=== PATIENT | female | born 1955 | race Caucasian/White ===

== ENCOUNTER → 2016-10-21 | Outpatient (CLI) | payer BC ==
[~2016-10-21] MED LIST: ALPR1TAB6 PO; AMOX500T PO; DILT180C53 PO; HYDR-3144 PO; HYDR60TA PO
[2016-10-21 13:29] LABS: PATH.CAST-FLAG NOT PRESENT; SPERM-FLAG NOT PRESENT; SRC-FLAG NOT PRESENT; XTAL-FLAG NOT PRESENT; YLC-FLAG NOT PRESENT
[2016-10-21 13:53] LABS: ASPARTATE AMINO TRANSFERASE 19 U/L (15-37); BLOOD UREA NITROGEN 8 mg/dL (7-18)
[2016-10-21 14:21] LABS: HIV 1&2 ANTIBODY SCREEN Nonreactive (Nonreactive); HIV-1 p24 ANTIGEN Nonreactive (Nonreactive)
[2016-10-22 09:32] LABS: HEPATITIS C VIRUS ANTIBODY Nonreactive (Nonreactive)
== END | disposition home or self-care (01) ==
LOC: STAR 12:04
PROVIDERS: ATTEND Orthopaedic Surgery Orthopaedic Surgery of the Spine
DX: Z01.818 Encounter for other preprocedural examination (principal); R91.8 Other nonspecific abnormal finding of lung field; M50.00 Cervical disc disorder with myelopathy, unspecified cervical region
CPT/HCPCS: 36415; 71020; 80053; 80074; 81001; 85025; 85610; 85651; 85730; 86703; 87077; 87086; 87186; 87899; 93005; G0435

== ENCOUNTER 2016-11-01 08:25 | Inpatient (IN) | payer BC ==
[2016-10-21 13:02] VITALS: BP 157/88
[~2016-11-01] VITALS: Ht 167.6 cm; Wt 67.8 kg
[~2016-11-01 08:25] MED LIST changes: +BACITRACIN 50,000 UNIT ONE; +BUPIVACAINE/PF-EPI 0.25% 1:200K ONE; +BUPIVACAINE/PF-EPI 0.5% 1:200K ONE; +LIDOCAINE/PF 1%-EPI 1:200K, 30ML ONE; +THROMBIN 5,000 UNIT VIAL TP ONE
[2016-11-01] MEDS ORDERED: LACTATED RINGERS 1,000 ML IV SCH (08:52)
[2016-11-01] MEDS ORDERED: HYDROmorphone 2 MG/ML, 1ML ONE (09:36)
[2016-11-01] MEDS ORDERED: FENTANYL PF 250 MCG/5ML ONE (09:36)
[2016-11-01] MEDS ORDERED: KETAMINE 10 MG/ML, 20ML ONE (09:36)
[2016-11-01] MEDS ORDERED: MIDAZOLAM 1 MG/ML, 2ML ONE (09:37)
[2016-11-01] MEDS ORDERED: SUCCINYLCHOLINE 20 MG/ML, 10ML ONE (11:30)
[2016-11-01] MEDS ORDERED: PROPOFOL 10 MG/ML, 20ML ONE (11:30)
[2016-11-01] MEDS ORDERED: CEFAZOLIN 1,000 MG ONE (11:30)
[2016-11-01] MEDS ORDERED: ONDANSETRON 2MG/ML, 2ML ONE (11:30)
[2016-11-01] MEDS ORDERED: PHENYLEPHRINE 10 MG/ML ONE (11:30)
[2016-11-01] MEDS ORDERED: PROPOFOL 10 MG/ML, 50ML ONE (11:30)
[2016-11-01] MEDS ORDERED: DEXAMETHASONE 4 MG/ML, 5ML ONE (11:30)
[2016-11-01] MEDS ORDERED: HYDROmorphone 1 MG/ML, 1ML IV PRN (12:00)
[2016-11-01] MEDS ORDERED: hydrALAzine 20 MG/ML, 1ML IV PRN ×2 (12:00→14:30)
[2016-11-01] MEDS ORDERED: OXYcodone 5 MG/5 ML ORAL.SOL UDC PO PRN (12:00)
[2016-11-01] MEDS ORDERED: FENTANYL PF 100 MCG/2ML IV PRN ×2 (12:00→14:30)
[2016-11-01] MEDS ORDERED: MEPERIDINE/PF 25MG/0.5ML IVPush PRN ×2 (12:00→14:30)
[2016-11-01] MEDS ORDERED: ONDANSETRON 2MG/ML, 2ML IVPush PRN ×2 (12:00→14:30)
[2016-11-01] MEDS ORDERED: HYDROcodone/APAP 7.5-325MG/15ML UDC PO PRN ×2 (12:00→14:30)
[2016-11-01] MEDS ORDERED: LABETALOL 5MG/ML, 20ML IV PRN ×3 (12:00→16:00)
[2016-11-01] MEDS ORDERED: PROMETHAZINE 25 MG/ML, 1ML IV PRN ×2 (12:00→14:30)
[2016-11-01] MEDS ORDERED: MIDAZOLAM 1 MG/ML, 2ML IV PRN ×2 (12:00→14:30)
[2016-11-01] MEDS ORDERED: ALBUTEROL/IPRATROPIUM 2.5MG/0.5MG, 3 ML NPPB PRN ×2 (12:00→14:30)
[2016-11-01] MEDS ORDERED: HYDROmorphone 1 MG/ML, 1ML ONE (14:14)
[2016-11-01] MEDS ORDERED: HYDROcodone/APAP 7.5-325MG/15ML UDC ONE (14:15)
[2016-11-01] MEDS: HYDROmorphone 1 MG/ML, 1ML IV PRN ×2 (14:30→14:43)
[2016-11-01] MEDS ORDERED: DIAZEPAM 5 MG/ML, 2ML ONE (14:38)
[2016-11-01] MEDS: DIAZEPAM 5 MG/ML, 2ML IV PRN ×4 (14:44→15:05)
[2016-11-01 15:45] VITALS: BP 126/77
[2016-11-01] MEDS ORDERED: DIPHENHYDRAMINE 50 MG/ML, 1ML IVPush PRN (16:00)
[2016-11-01] MEDS ORDERED: PROMETHAZINE 25 MG/ML, 1ML IM PRN (16:00)
[2016-11-01] MEDS: AMOXICILLIN 500 MG CAPSULE PO SCH ×2 (16:00→21:40)
[2016-11-01] MEDS ORDERED: DIPHENHYDRAMINE 50 MG/ML, 1ML IM PRN (16:00)
[2016-11-01] MEDS ORDERED: DIPHENHYDRAMINE 50 MG CAPSULE PO PRN (16:00)
[2016-11-01] MEDS ORDERED: BISACODYL 10 MG SUPP PR PRN (16:00)
[2016-11-01] MEDS ORDERED: PROMETHAZINE 12.5 MG SUPP PR PRN (16:00)
[2016-11-01] MEDS ORDERED: NICOTINE 14MG/24 HR PATCH.TD24 TD SCH (16:00)
[2016-11-01] MEDS ORDERED: MAGNESIUM HYDROXIDE 8%, 30ML UDC PO PRN (16:00)
[2016-11-01] MEDS: HYDROcodone/APAP 10/325 MG TABLET PO SCH ×2 (16:00→19:48)
[2016-11-01] MEDS: CEFAZOLIN PMX 1GM/50ML 50 ML IVPB SCH (19:44)
[2016-11-01 20:00] VITALS: BP 133/77
[2016-11-01] MEDS: LACTATED RINGERS 1,000 ML IV SCH (21:40)
[2016-11-02 00:15] VITALS: BP 136/83
[2016-11-02] MEDS ORDERED: HYDROmorphone 1 MG/ML, 1ML ONE (02:52)
[2016-11-02] MEDS: HYDROcodone/APAP 10/325 MG TABLET PO SCH ×4 (02:56→11:52)
[2016-11-02] MEDS: HYDROmorphone 2 MG/ML, 1ML IM PRN ×2 (02:58→05:54)
[2016-11-02 03:27] VITALS: BP 154/84
[2016-11-02] MEDS: CEFAZOLIN PMX 1GM/50ML 50 ML IVPB SCH (04:07)
[2016-11-02] MEDS: LACTATED RINGERS 1,000 ML IV SCH (07:46)
[2016-11-02] MEDS: AMOXICILLIN 500 MG CAPSULE PO SCH (08:00)
[2016-11-02 08:09] VITALS: BP 135/78
[2016-11-02] MEDS ORDERED: SENNA/DOCUSATE TABLET PO SCH (09:00)
[2016-11-02] MEDS ORDERED: DILTIAZEM CD 180 MG CAP.ER.24H PO SCH (09:00)
[2016-11-02 13:35] VITALS: BP 112/74
== END 2016-11-02 14:54 | disposition home or self-care (01) | DRG 472 ==
LOC: OUT 08:25 → 4NOR 15:44 → OUT 15:46 → DCLOUNGE 11-02 14:19
PROVIDERS: ADMIT Orthopaedic Surgery Orthopaedic Surgery of the Spine; ATTEND Orthopaedic Surgery Orthopaedic Surgery of the Spine
PROC: 0RB30ZZ Excision of Cervical Vertebral Disc, Open Approach (ICD-10-PCS; 2016-11-01)
PROC: 4A11X4G Monitoring of Peripheral Nervous Electrical Activity, Intraoperative, External Approach (ICD-10-PCS; 2016-11-01)
PROC: 0RG20A0 Fusion of 2 or more Cervical Vertebral Joints with Interbody Fusion Device, Anterior Approach, Anterior Column, Open Approach (ICD-10-PCS; principal; 2016-11-01 10:30)
DX: M48.02 Spinal stenosis, cervical region (principal); M50.00 Cervical disc disorder with myelopathy, unspecified cervical region; M47.12 Other spondylosis with myelopathy, cervical region; M50.10 Cervical disc disorder with radiculopathy, unspecified cervical region; M47.22 Other spondylosis with radiculopathy, cervical region; I48.91 Unspecified atrial fibrillation; I10 Essential (primary) hypertension; F41.9 Anxiety disorder, unspecified; Z90.710 Acquired absence of both cervix and uterus
CPT/HCPCS: 36415; 72040; 86850; 86900; C1713; J0690; J1100; J1170; J2250; J2405; J2704; J3010; J3360; J3490; C1762; C1778; J0330; J2370; J7120